=== PATIENT | male | born 1940 | race Caucasian/White ===

== ENCOUNTER 2018-07-07 18:34 | Outpatient (REF) | payer MEDICARE, BC, SELFPAY ==
[2018-07-07 20:10] LABS: INR 3.8 (1.0-3.5); Prothrombin Time 35.6 sec (9.3-10.8)
== END 2018-07-07 18:54 ==
LOC: NCHCN 18:34
PROVIDERS: PCP Internal Medicine; Visit Provider Internal Medicine
DX: I48.0 Paroxysmal atrial fibrillation (principal); L03.116 Cellulitis of left lower limb; E66.9 Obesity, unspecified; E11.65 Type 2 diabetes mellitus with hyperglycemia
CPT/HCPCS: 85610

== ENCOUNTER 2019-08-13 14:27 | Outpatient (REF) | payer MEDICARE, BC, SELFPAY ==
[2019-08-13 19:20] LABS: ALT 23 U/L (16-63); BUN 23 mg/dL (7-18); CREATININE 1.17 mg/dL (0.70-1.30); Calcium 8.9 mg/dL (8.5-10.1); Chloride 106 mmol/L (98-107); Glucose 160 mg/dL (70-100); LDL CHOLESTEROL 73 mg/dL (<100); Potassium 4.3 mmol/L (3.5-5.1); Sodium 140 mmol/L (136-145)
[2019-08-13 19:29] LABS: HCT 42.2 % (40.0-50.0); HGB 14.3 g/dL (13.5-17.5); Mean Corp. HGB Concentration 33.9 g/dL (32.0-36.0); Mean Corpuscular Hemoglobin 30.2 pg (27.0-33.0); Mean Platelet Volume 10.8 fL (8.0-11.0); Platelet Count 248 x1000/uL (130-400); RBC 4.74 m/cumm (4.50-6.00); RBC Distribution Width 14.1 % (11.8-14.1); White Blood Cell Count 4.96 k/cumm (4.4-10.8)
== END 2019-08-13 14:47 ==
LOC: NCHCO 14:27
PROVIDERS: PCP Internal Medicine; Visit Provider Internal Medicine
DX: E11.9 Type 2 diabetes mellitus without complications (principal); E78.5 Hyperlipidemia, unspecified; I48.0 Paroxysmal atrial fibrillation; Z79.01 Long term (current) use of anticoagulants
CPT/HCPCS: 80048; 83721; 85027; 84460

== ENCOUNTER 2019-11-23 18:44 | Outpatient (REF) | payer MEDICARE, BC, SELFPAY ==
[2019-11-23 19:22] LABS: COMMENT (LAB VIEW ONLY) 97.35 mg/dL; Microalb ug/mg Crea 24.6 ug/mg Cr
== END 2019-11-23 19:04 ==
LOC: NCHCN 18:44
PROVIDERS: PCP Internal Medicine; Visit Provider Internal Medicine
DX: E11.9 Type 2 diabetes mellitus without complications (principal)
CPT/HCPCS: 82043; 82570

== ENCOUNTER 2020-03-06 13:50 | Outpatient (REF) | payer MEDICARE, BC, SELFPAY ==
[2020-03-06 20:12] LABS: Abs Immature Grans 0.01 k/cumm (0.0-0.09); Absolute Basophil Count 0.02 k/cumm (0.0-0.2); Absolute Lymphocyte Count 1.23 k/cumm (1.2-3.4); Absolute Monocyte Count 0.72 k/cumm (0.11-0.7); Absolute Neutrophil Count 2.87 k/cumm (1.2-6.7); Basophils % 0.4; HCT 42.7 % (40.0-50.0); HGB 15.1 g/dL (13.5-17.5); Immature Grans % 0.2 %; Lymphocytes % 24.8; Mean Corp. HGB Concentration 35.4 g/dL (32.0-36.0); Mean Corpuscular Hemoglobin 31.2 pg (27.0-33.0); Mean Corpuscular Volume 88.2 fL (80-95); Mean Platelet Volume 11.4 fL (8.0-11.0); Monocytes % 14.5; Neutrophils % 58.1; Platelet Count 247 x1000/uL (130-400); RBC 4.84 m/cumm (4.50-6.00); RBC Distribution Width 14.8 % (11.8-14.1); White Blood Cell Count 4.95 k/cumm (4.4-10.8)
[2020-03-06 20:24] LABS: Iron 90 ug/dL (65-175); Total Iron Binding Capacity 334 ug/dL (250-450); Transferrin Sat 27 % (20-55)
[2020-03-06 20:32] LABS: ALT 25 U/L (16-63); AST 17 U/L (15-37); Albumin 3.5 g/dL (3.4-5.0); Alkaline Phosphatase 94 U/L (46-116); Anion Gap 7.6 mmol/L (3-11); BUN 15 mg/dL (7-18); CO2 22.4 mmol/L (21.0-32.0); CREATININE 1.18 mg/dL (0.70-1.30); Calcium 8.7 mg/dL (8.5-10.1); Chloride 107 mmol/L (98-107); Estimated GFR 59.86 (mL/min/1.73m2); Ferritin 94 ng/mL (26-388); Glucose 146 mg/dL (74-106); Potassium 4.4 mmol/L (3.5-5.1); Sodium 137 mmol/L (136-145); TSH (W/Ref FT4) 1.01 uIU/mL (0.36-3.74); Total Protein 6.4 g/dL (6.4-8.2)
== END 2020-03-06 14:10 ==
LOC: NCHCN 13:50
PROVIDERS: PCP Internal Medicine; Visit Provider Physician Assistant
DX: E11.40 Type 2 diabetes mellitus with diabetic neuropathy, unspecified (principal); F32.9 Major depressive disorder, single episode, unspecified; G47.00 Insomnia, unspecified
CPT/HCPCS: 80053; 82728; 83540; 83550; 84443; 85025

== ENCOUNTER 2020-10-30 18:35 | Outpatient (REF) | payer MEDICARE, BC, SELFPAY ==
[2020-10-30 15:33] LABS: Anion Gap 8.7 mmol/L (3-11); BUN 23 mg/dL (7-18); CO2 23.3 mmol/L (21.0-32.0); CREATININE 1.1 mg/dL (0.70-1.30); Calcium 8.7 mg/dL (8.5-10.1); Chloride 107 mmol/L (98-107); Glucose 121 mg/dL (74-106); Potassium 4.5 mmol/L (3.5-5.1); Sodium 139 mmol/L (136-145)
== END 2020-10-30 18:55 ==
LOC: NCHCN 18:35
PROVIDERS: PCP Internal Medicine; Visit Provider Physician Assistant
DX: R60.0 Localized edema (principal)
CPT/HCPCS: 80048

== ENCOUNTER 2021-03-06 16:05 | Outpatient (REF) | payer MEDICARE, BC, SELFPAY ==
[2021-03-06 18:57] LABS: HCT 42.6 % (40.0-50.0); HGB 14.1 g/dL (13.5-17.5); MCH 29.4 pg (27.0-33.0); MCHC 33.1 % (32.0-36.0); MCV 88.9 fL (80-95); MPV 10.7 fL (8.0-11.0); Platelet Count 255 10^3/uL (130-400); RBC 4.79 10^6/uL (4.36-5.78); RDW 12.9 % (11.8-14.1); RDW-SD 42.4 fL; WBC 4.23 10^3/uL (4.4-10.8)
[2021-03-06 19:50] LABS: ALT 18 U/L (16-63); AST 15 U/L (15-37); Albumin 3.3 g/dL (3.4-5.0); Alkaline Phosphatase 108 U/L (46-116); Anion Gap 9.3 mmol/L (3-11); BUN 25 mg/dL (7-18); Bilirubin, Total 0.6 mg/dL (0.2-1.0); CO2 24.7 mmol/L (21.0-32.0); CREATININE 1.2 mg/dL (0.70-1.30); Calcium 8.8 mg/dL (8.5-10.1); Chloride 107 mmol/L (98-107); Estimated GFR 58.56 (mL/min/1.73m2); Glucose 139 mg/dL (74-106); Potassium 5.2 mmol/L (3.5-5.1); Sodium 141 mmol/L (136-145); TSH 1.48 uIU/mL (0.36-3.74); Total Protein 6.5 g/dL (6.4-8.2); Vitamin B12 634 pg/mL (193-986)
== END 2021-03-06 16:06 | disposition home or self-care (01) ==
LOC: NCHCN 16:05
PROVIDERS: PCP Internal Medicine; Visit Provider Internal Medicine
DX: E11.9 Type 2 diabetes mellitus without complications (principal); F41.8 Other specified anxiety disorders
CPT/HCPCS: 80053; 85027; 82607; 84443

== ENCOUNTER 2021-07-22 19:09 | Outpatient (REF) | payer MEDICARE, BC, SELFPAY ==
[2021-07-22 20:47] LABS: Microalb ug/mg Crea 8.1 ug/mg Cr
== END 2021-07-22 19:10 | disposition home or self-care (01) ==
LOC: NCHCN 19:09
PROVIDERS: PCP Internal Medicine; Visit Provider Internal Medicine
DX: E11.9 Type 2 diabetes mellitus without complications (principal)
CPT/HCPCS: 82043; 82570

== ENCOUNTER 2021-09-28 11:24 | Outpatient (REF) | payer MEDICARE, BC, SELFPAY ==
[2021-09-30 14:08] LABS: COVID-19 RT-PCR UVMMC Result Positive (Negative)
== END 2021-09-28 11:25 | disposition home or self-care (01) ==
LOC: NCHCN 11:24
PROVIDERS: PCP Internal Medicine; Visit Provider Nurse Practitioner Family
DX: Z20.822 Contact with and (suspected) exposure to COVID-19 (principal)
CPT/HCPCS: U0003

== ENCOUNTER 2021-11-11 01:11 | Outpatient (CLI) | payer MEDICARE, BC, SELFPAY ==
[2021-11-11 12:41] LABS: Source Nasal/Nares
[2021-11-11 16:47] LABS: COVID-19 PCR Negative (Negative)
== END 2021-11-11 01:12 | disposition home or self-care (01) ==
LOC: LBO 01:11
PROVIDERS: PCP Internal Medicine; Visit Provider Ophthalmology
DX: Z20.822 Contact with and (suspected) exposure to COVID-19 (principal); Z01.818 Encounter for other preprocedural examination
CPT/HCPCS: 87635

== ENCOUNTER 2021-11-13 09:41 | Day surgery (SDC) | payer MEDICARE, BC, SELFPAY ==
[2021-11-13 10:02] VITALS: BP 104/79; PULSE 82; RESP 18; TEMP 36.5; O2SAT 98
[2021-11-13] MEDS: Tropicam./Phenyleph. (1/2.5%) 5 ML BTL OS ×3 (10:09→10:19)
--- NOTE | 2021-11-13 10:32 | ANES.PREOP_ITS ---
General Info Date of Service Date Performed: 11/13/21 Height: 5 ft 4 in Weight: 77.2 kg Body Mass Index (BMI): 29.2 Surgical Procedure: Operation Date: 11/13/21 11:25 Proposed Procedure Side Surgeon p Cataract Extraction with IOL Implant Left Oc Haines MD Meds Allergies and Home Medications Allergies Allergy/AdvReac Type Severity Reaction Status Date / Time No Known Allergies Allergy Unverified 11/13/21 10:06 Home Medication Medication Instructions Recorded diltiazem HCl 240 mg 240 mg PO DAILY 11/12/21 capsule,extended release 24 hr metformin 1,000 mg tablet 500 mg PO BID 11/12/21 pravastatin 40 mg tablet 40 mg PO DAILY 11/12/21 rivaroxaban 20 mg tablet (Xarelto) 20 mg PO HS 11/12/21 Current Visit Medications: Current Medications Generic Name Dose Route Start Last Admin Trade Name Freq PRN Reason Stop Dose Admin Acetaminophen 1,000 mg 11/13/21 06:00 Acetaminophen 500 Mg Tab PO Q4H PRN PRN Miscellaneous Medication 0 ml 11/13/21 06:00 Prednisolone 1%, Moxifloxacin 0.5%, Nepafenac 0.1% 5ml Btl OS DIRECTED [facility] Miscellaneous Medication 0 ml 11/13/21 06:00 11/13/21 10:19 Tropicam./Phenyleph. (1/2.5%) 5 Ml Btl OS 1 drp DIRECTED KAYLI Administration Tetracaine HCl 0 ml 11/13/21 06:00 Tetracaine 0.5% 4 Ml Btl OS DIRECTED [facility] PFSH Medical History Medical History Anxiety and depression Basal cell carcinoma Cataracts, bilateral Chronic a-fib Diabetes Diabetic peripheral neuropathy DJD (degenerative joint disease) Fatigue HLD (hyperlipidemia) Inguinal hernia Insomnia Irritable bowel syndrome with diarrhea LVH (left ventricular hypertrophy) Microscopic colitis Mild cognitive impairment Psoriasis Surgical History Surgical History H/O arthroscopy of left knee History of right hip replacement Tobacco Smoking/Tobacco Use Status: Former Tobacco Use Alcohol Alcohol Intake: former Substance Use Substance use: Never Substance use type: does not use Vital Signs and Lab Results Vital Signs Most Recent Vital Signs in EMR: Most Recent Vital Signs Temp Pulse Resp BP Pulse Ox 36.5 C 82 18 104/79 98 11/13/21 10:02 11/13/21 10:02 11/13/21 10:02 11/13/21 10:02 11/13/21 10:02 Point of Care Results Point of Care Results: Finger Stick Blood Glucose 134 11/13/21 10:00 Lab Results Blood Type / Crossmatch: No Data to Display Complete Blood Count: No Data to Display Complete Metabolic Panel: No Data to Display Liver Function Panel: No Data to Display Coagulation Panel: No Data to Display Cardiac Panel: No Data to Display Arterial Blood Gas: No Data to Display Venous Blood Gas: No Data to Display Pancreas Panel: No Data to Display Thyroid Panel: No Data to Display Infectious Disease: Coronavirus (COVID-19)(PCR) Negative (Negative) 11/11/21 10:17 11/11/21 Coronavirus 2019 Source Nasal/Nares 11/11/21 10:17 11/11/21 Blood Cultures: No Data to Display Toxicology Panel: No Data to Display Anesthesia Assessment and Plan Anesthesia History Personal History: No History of Anesthesia Complications Family History: No Family History of Anesthesia Complications Exercise Tolerance Exercise Tolerance: Metabolic Equivalents>4 Pertinent Negatives Pertinent Negatives: No Symptoms of GERD Cardiac & Pulmonary Exam Cardiac Exam: Normal S1/S2 Heart Sounds Pulmonary Exam: Clear Bilateral Breath Sounds Implantable Cardiac Device Does patient have a Pacemaker or an ICD?: No Airway Exam Known Difficult Airway: No Mallampati Class: 2 Mouth Opening: Normal (> 3cm) Thyromental Distance: Greater than 3 cm Neck Range of Motion: Full ROM Neck Circumference: Normal Teeth Condition: Normal Dentition ASA Classification ASA Score: ASA 3 Emergency Case?: No NPO Status NPO Status: NPO Clears >2 hours, Solids >8 hours Anesthesia Plan Resuscitation Status: Full Code Anesthesia Technique: MAC Anesthesia Airway Planned: Natural Airway Monitors Used: Standard Monitors
[2021-11-13 11:23] VITALS: BMI 29.2
[2021-11-13] MEDS: Tetracaine 0.5% 4 ML BTL OS (11:35)
[2021-11-13] MEDS: Lidocaine 2% Jelly 6 ML SYR (11:36)
[2021-11-13] MEDS: Balanced Salt Soln.-PLUS 500 ML BAG (11:46)
[2021-11-13] MEDS: Duovisc Viscoelastic System EACH 1 EACH (11:47)
[2021-11-13] MEDS: Trypan Blue 0.06% 0.5 ML SYR (11:50)
[2021-11-13] MEDS: Povidone-Iodine Ophth 30 ML BTL (11:50)
--- NOTE | 2021-11-13 12:08 | W.PM.DSUDISC ---
Discharge Plan Disposition Patient Disposition: HOME Condition: Good Discharge Details Attending Provider: Oc Haines Primary Care Provider: Florin Wagner Home Meds and New Rx's Prescriptions: No Action pravastatin 40 mg tablet 40 mg PO DAILY 0RF diltiazem HCl 240 mg capsule,extended release 24hr 240 mg PO DAILY 0RF Label Comments: TAKE ONE CAPSULE BY MOUTH EVERY DAY metformin 1,000 mg tablet 500 mg PO BID 0RF Label Comments: TAKE 1/2 TABLET BY MOUTH TWO TIMES A DAY Xarelto 20 mg Tablet 20 mg PO HS 0RF Discharge Instructions Stand Alone Forms: Post-op Topical Cataract, Ovidio Ortiz (DSU) Discharge Orders Discharge Orders: Discharge Order (Routine); Ordered 11/13/21 Ordered By: Oc Haines DS: Diagnosis Discharge Diagnosis (1) Cortical cataract of left eye: Status: Resolved (2) Nuclear sclerotic cataract of left eye: Status: Resolved (3) Posterior subcapsular age-related cataract of left eye: Status: Resolved
[2021-11-13 12:10] VITALS: BP 108/87; PULSE 85; RESP 17; TEMP 36.5; O2SAT 99
--- NOTE | 2021-11-13 12:10 | W.PM.OP ---
Date of service: 11/13/21 Time of Service: 12:10 Operative Note Operative Note DATE OF PROCEDURE: 11/13/21 PRE-OP DIAGNOSIS: Dense nuclear/cortical/posterior subcapsular cataract, left eye Poor red reflex, left eye secondary to dense cataract POST-OP DIAGNOSIS: same PROCEDURE: Cataract extraction using phacoemulsification with intraocular lens implant, left eye, using capsular staining with Vision Blue SURGEON: Oc Haines ANESTHESIA TYPE: Local By Surgeon and MAC Refer to Anesthesia Record COMPLICATIONS: None Patient was transported to: same day Patient's condition: stable Implants: [employer] Jamie / [employer] Tecnis [id number] Indications: Progressive decreased vision due to cataract, left eye, with poor red reflex Procedure Description: CATARACT SURGERY OPERATIVE REPORT PREOPERATIVE DIAGNOSIS: 1. Dense nuclear/cortical/posterior subcapsular cataract, left eye 2. Poor red reflex secondary to #1 POSTOPERATIVE DIAGNOSIS: Same OPERATION: 1. Cataract extraction using phacoemulsification with posterior chamber intraocular lens implant, left eye. 2. Capsular staining with Vision Blue IOL: IOL [employer] Consultant/Model: Jamie & Jamie / PRUDENCE Tecnis [id number] IOL Power: + 20.0 diopters IOL Serial Number: [id number] Optic Diameter: 6.0 mm Haptic/Overall Diameter: 13.0 mm PHACO INFO: Loc [employer] Vision System with OZil and Active [employer]uidics Cumulative Dispersed Energy (CDE): 16.0 seconds SURGEON: Oc Haines MD, ROBBY ANESTHESIA: Monitored A [facility] (MAC), with local sub-tenon's anesthetic infiltration COMPLICATIONS: None SPECIMENS: None INDICATIONS FOR PROCEDURE: The patient is a 81-year-old gentleman with history of progressive decreased vision in his left eye secondary to the development of a dense nuclear/cortical/posterior subcapsular cataract with visual acuity of 20/300. The option of cataract surgery was offered to the patient and he felt he was symptomatic enough that he wished to proceed. PROCEDURE: The correct surgical eye was identified and marked as the left eye and the pupil was dilated in the preoperative area using mydriatics and cycloplegics. The dilated pupil size was 8.0 mm. . He elected to proceed without oral sedation. The patient was brought to the operating room where cardiopulmonary monitoring was instituted and surgical time-out was performed, confirming the correct operative eye and IOL power. Topical anesthesia was administered and ophthalmic povidone-iodine 5% was instilled into the conjunctival fornices. Lidocaine gel was applied to the cornea and the petros-ocular area was prepped with Betadine 10% solution and draped in the usual sterile fashion for intraocular surgery, including an aperture drape. A Tegaderm transparent film dressing was cut in half and used to cover the lashes and lid margins. Care was taken to sequester the lashes and lid margins under the Tegaderm dressing. A lid speculum was placed between the lids of the operative eye and the Loc Lux[employer] Revalia operating microscope was maneuvered into position. Rene scissors were then used to make a conjunctival buttonhole approximately 6mm posterior to the limbus in the inferonasal quadrant. Blunt dissection was carried out to expose bare sclera, and a blunt-tipped sub-tenon?s anesthesia cannula was introduced and passed posteriorly along the globe where non-preserved plain lidocaine was injected into posterior sub-Tenon?s space. A sideport knife was used to make a paracentesis port superiorly/superiortemporally. Intraocular phenylephrine/lidocaine was injected int the anterior chamber.. Air was then injected into the anterior chamber, followed by Vision Blue, which was painted over the anterior capsule and then irrigated out using BSS. The anterior chamber was filled with viscoelastic. A 2.4mm keratome knife was used to create a half-thickness groove at the limbus and then to construct a three-plane near-clear corneal tunnel extending 2.0mm into clear cornea at the 3:00 position. A flap was raised on the anterior capsule and capsulorhexis forceps were used to complete a continuous curvilinear capsulorhexis of 5.0 mm. Balanced salt solution was then used to perform cortical cleaving hydrodissection and nuclear hydrodelineation until the lens could be freely rotated within the capsular bag. The lens nucleus was then disassembled and removed within the capsular bag and iris plane using phacoemulsification. Residual cortical material was removed using the 45-degree angled silicone I/A tip with 0.3mm port. The posterior capsule was carefully polished to remove as much residual lens epithelial cells as safely possible. The capsular bag was then inflated and the anterior chamber deepened with viscoelastic. The lens implant described above was inserted into the capsular bag using the PRUDENCE [place] Injector. A Kuglen hook was used to dial the IOL into position. Residual viscoelastic was then removed first from posterior to the IOL, then from the anterior chamber using the I/A handpiece. The lens implant was noted to center nicely within the capsular bag. The incisions were stromally hydrated, and the anterior chamber was reformed using BSS. Then 0.5cc of moxifloxacin 1.0mg/ml were injected into the capsular bag and anterior chamber. The incisions were checked with a Weck spear and found to be secure. Several drops of ophthalmic povidone-iodine 5% were then applied to the eye followed by two drops of Imprimis combination prednisolone/moxifloxacin/nepafenac solution. The drapes were removed and a clear plastic protective eye shield was placed over the eye. The patient was then returned to Same Day Surgery in stable condition.
--- NOTE | 2021-11-13 12:29 | W.ANESPOSTOP ---
Postoperative Evaluation Date, Time and Location Date Performed: 11/13/21 Time Performed: 12:15 Patient Location: Day Surgery Unit Vital Signs Most Recent Imported Vital Signs: Most Recent Vital Signs Temp Pulse Resp BP Pulse Ox 36.5 C 85 17 108/87 99 11/13/21 12:10 11/13/21 12:10 11/13/21 12:10 11/13/21 12:10 11/13/21 12:10 Pain Score Most Recent Pain Score: Most Recent Pain Score Pain Level 0 11/13/21 12:10 Assessment Mental Status: Awake (Alert & Oriented to Patient Baseline) Airway and Respiratory Function: Patent airway with normal (patient baseline) respiratory exam Cardiovascular Function: Hemodynamically Stable Hydration Status: Adequately Hydrated Nausea & Vomiting: No Nausea or Vomiting Pain: Pt. Denies Any Pain Peripheral Nerve Block: Patient did not receive a nerve block
== END 2021-11-13 12:28 | disposition home or self-care (01) ==
PROVIDERS: PCP Internal Medicine; Visit Provider Ophthalmology
PROC: (CPT 66984; principal; 2021-11-13 11:15)
DX: H25.042 Posterior subcapsular polar age-related cataract, left eye (principal); E11.42 Type 2 diabetes mellitus with diabetic polyneuropathy; E78.5 Hyperlipidemia, unspecified; I48.20 Chronic atrial fibrillation, unspecified
CPT/HCPCS: 66984; V2632